=== PATIENT | female | born 1960 | race Caucasian/White ===

== ENCOUNTER → 2021-02-22 | Outpatient (CLI) | payer BC ==
--- NOTE | 2021-02-22 12:35 | Diagnostic Imaging Report ---
PROCEDURE: MRI neck with and without contrast. TECHNIQUE: Multiplanar, multisequence MRI of the neck was performed with and without contrast. INDICATION: Lump in the throat. COMPARISON: None available. FINDINGS: The posterior nasopharynx and oropharynx demonstrate appropriate symmetry. There is no displacement of the parapharyngeal fat planes. There is no abnormal process evident within the prevertebral or retropharyngeal space. There is no evidence of abnormal thickening of the epiglottis or aryepiglottic folds. The vocal folds appear symmetric. The parotid, submandibular and thyroid gland are unremarkable. No pathologically enlarged cervical lymph nodes are evident. No focal inflammatory changes are demonstrated. No soft tissue mass or fluid collection demonstrated. The flow voids are preserved within the major vascular structures of the neck. The visualized lung apices are clear. The visualized intracranial contents demonstrate no evidence of pathologic intracranial enhancement or intracranial mass effect. Visualized orbital contents are unremarkable. The visualized paranasal sinuses are clear. The mastoids and middle ears are clear. No acute osseous abnormality in the cervical spine. Impression: 1. Appropriate symmetry of the aerodigestive tract. 2. No evidence of pathologic adenopathy. 3. No soft tissue mass, fluid collection or focal inflammatory changes demonstrated. Dictated by: Dictated on workstation # [id number]
== END ==
LOC: RAD 09:30
PROVIDERS: ATTEND Otolaryngology Otolaryngology/Facial Plastic Surgery
DX: R22.1 Localized swelling, mass and lump, neck (principal); E04.2 Nontoxic multinodular goiter
CPT/HCPCS: 70543

== ENCOUNTER → 2021-07-21 | Outpatient (CLI) | payer BC ==
--- NOTE | 2021-07-21 13:19 | Diagnostic Imaging Report ---
PROCEDURE: US Thyroid. TECHNIQUE: Multiple Real-time grayscale images were obtained of the thyroid in various projections. INDICATION: Thyroid nodules. COMPARISON: MRI from 02/22/2021. FINDINGS: The right thyroid lobe measures 4.5 x 1.3 x 1.2 cm in size. Background echotexture is generally homogenous. Vascularity appears normal. There is a solid isoechoic well-defined nodule in the inferior right thyroid which measures 1.3 cm in greatest dimension (TI-RADS 3). The isthmus measures 2 mm in thickness and appears normal. The left thyroid lobe measures 3.0 x 1.2 x 0.8 cm. No nodules are seen. Echogenicity is normal. IMPRESSION: Isoechoic solid nodule in the inferior right thyroid does not qualify for followup based on TI-RADS criteria. Dictated by: Dictated on workstation # [id number]
== END ==
LOC: RAD 10:30
PROVIDERS: ATTEND Otolaryngology Otolaryngology/Facial Plastic Surgery
DX: E04.2 Nontoxic multinodular goiter (principal)
CPT/HCPCS: 76536

== ENCOUNTER → 2022-07-26 | Outpatient (CLI) | payer BC ==
--- NOTE | 2022-07-26 11:11 | Diagnostic Imaging Report ---
Indication: Right shoulder pain AP, transscapular, and transaxillary views of the right shoulder are obtained No fracture or acute bone abnormality seen. There is mild degenerative change of the AC joint. Glenohumeral joint appears unremarkable. IMPRESSION: Mild degenerative findings with no acute abnormality. Dictated by: Dictated on workstation # [id number]
--- NOTE | 2022-07-26 15:45 | Diagnostic Imaging Report ---
INDICATION: Neck pain and radiculopathy AP, lateral, and odontoid views are obtained as well as flexion-extension views The cervical vertebrae appear normal in height and alignment. There is no fracture or subluxation. There is mild disc space narrowing at C4-C5 and C5-C6 with osteophyte formation. There is no abnormal motion between flexion and extension. IMPRESSION: Mild degenerative changes in the lower cervical spine as above with no acute appearing abnormality. Dictated by: Dictated on workstation # [id number]
== END ==
LOC: ORTHO 09:10
PROVIDERS: ATTEND Orthopaedic Surgery
DX: M50.121 Cervical disc disorder at C4-C5 level with radiculopathy (principal); M50.122 Cervical disc disorder at C5-C6 level with radiculopathy; M19.011 Primary osteoarthritis, right shoulder
CPT/HCPCS: 72050; 73030; G0463; 99213